=== PATIENT | female | born 1990 | race Two or more races ===

== ENCOUNTER 2023-11-08 06:24 | Inpatient (IN) | payer OTHER ==
[~2023-11-08] VITALS: Ht 154.9 cm; Wt 77.3 kg
[2023-11-08 08:12] LABS: COVID AG,FIA SOURCE NASAL SWAB
[2023-11-08 08:39] LABS: SARS-COV2 (COVID) ANTIGEN,FIA Negative (Negative)
[2023-11-08 10:29] LABS: APPEARANCE,URINE CLEAR (CLEAR); BILIRUBIN,URINE NEGATIVE (NEGATIVE); COLOR,URINE LIGHT YELLOW (YELLOW); GLUCOSE, URINE (UA) NEGATIVE (NEGATIVE); KETONES,URINE NEGATIVE (NEGATIVE); LEUKOCYTE ESTERASE ,URINE NEGATIVE (NEGATIVE); NITRATE,URINE NEGATIVE (NEGATIVE); OCCULT BLOOD,URINE NEGATIVE (NEGATIVE); PROTEIN,URINE NEGATIVE (NEGATIVE); SPECIFIC GRAVITIY, URINE 1.016 (1.003-1.030); UROBILINOGEN,URINE <=1.0 mg/dL (<=1.0)
[2023-11-08 10:35] LABS: HCG,QUAL URINE NEGATIVE (NEGATIVE)
[2023-11-08 10:36] LABS: ALCOHOL, URINE DRUG SCREEN NEGATIVE (NEGATIVE); BENZODIAZEPINES SCREEN,URINE POSITIVE (NEGATIVE); CANNABINOID SCREEN,URINE NEGATIVE (NEGATIVE); COCAINE SCREEN,URINE NEGATIVE (NEGATIVE); METHADONE SCREEN, URINE NEGATIVE (NEGATIVE); OPIATE SCREEN,URINE NEGATIVE (NEGATIVE); PHENCYCLIDINE SCREEN,URINE NEGATIVE (NEGATIVE)
[2023-11-08 10:42] LABS: BACTERIA,URINE None Seen /HPF (None Seen); RBC,URINE None Seen /HPF (0-2); SQUAMOUS EPITHELIAL CELL,UR Rare /LPF (None Seen); WBC,URINE None Seen /HPF (0-5)
[2023-11-08 10:46] LABS: AMPHET/METH SCREEN,URINE NEGATIVE (NEGATIVE); BARBITURATE SCREEN, URINE NEGATIVE (NEGATIVE)
[2023-11-08] MEDS ORDERED: IPRATROPIUM BROMIDE 0.5 MG/2.5 ML NEB SOLUTION NEB PRN (11:00)
[2023-11-08] MEDS ORDERED: ZOLPIDEM TARTRATE 5 MG TABLET PO PRN (11:00)
[2023-11-08] MEDS ORDERED: MAGNESIUM HYDROXIDE SUSPENSION 30 ML UDCUP PO PRN (11:00)
[2023-11-08] MEDS ORDERED: ONDANSETRON HCL 4 MG/2 ML VIAL IVP PRN (11:00)
[2023-11-08] MEDS ORDERED: BISACODYL 10 MG RECTAL RECTAL SUPPOSITORY PR PRN (11:00)
[2023-11-08] MEDS ORDERED: ALBUTEROL SULFATE 2.5 MG/0.5 ML NEB SOLUTION NEB PRN (11:00)
[2023-11-08] MEDS: HydrOXYzine HCL 25 MG TABLET PO ONE (13:10)
[2023-11-08 15:03] VITALS: BP 94/57; PULSE 65; RESP 19; TEMP 98.6; O2SAT 94
[2023-11-08] MEDS: HEPARIN SODIUM,PORCINE 5,000 UNITS/ML VIAL SQ SCH (16:20)
[2023-11-08] MEDS: DOCUSATE SODIUM 100 MG CAPSULE PO SCH (20:38)
[2023-11-08 20:40] VITALS: BP 103/63; PULSE 75; RESP 18; TEMP 98.2; O2SAT 97
[2023-11-08] MEDS: HydrOXYzine HCL 25 MG TABLET PO PRN (23:19)
[2023-11-09] MEDS: PANTOPRAZOLE SODIUM 40 MG/VIAL IVP SCH (08:58)
[2023-11-09 09:29] VITALS: BP 132/72; PULSE 72; RESP 18; TEMP 98.3; O2SAT 97
[2023-11-09] MEDS: DiphenhydrAMINE HCL 50 MG/ML VIAL IM ONE (13:05)
[2023-11-09] MEDS: HALOPERIDOL LACTATE 5 MG/ML VIAL IM ONE (13:06)
[2023-11-09] MEDS: LORazepam 2 MG/ML VIAL IM ONE (13:07)
[2023-11-09 19:55] VITALS: BP 100/59; PULSE 81; RESP 17; TEMP 97.8; O2SAT 97
[2023-11-10 09:58] VITALS: BP 113/71; PULSE 87; RESP 20; TEMP 98.4; O2SAT 99
[2023-11-10] MEDS ORDERED: LORazepam 2 MG/ML VIAL ONE (15:15)
[2023-11-10] MEDS ORDERED: HALOPERIDOL LACTATE 5 MG/ML VIAL ONE (15:15)
[2023-11-10] MEDS ORDERED: DiphenhydrAMINE HCL 50 MG/ML VIAL ONE (15:15)
[2023-11-10] MEDS: LORazepam 2 MG/ML VIAL IM ONE (15:22)
[2023-11-10] MEDS: DiphenhydrAMINE HCL 50 MG/ML VIAL IM ONE (15:23)
[2023-11-10] MEDS: HALOPERIDOL LACTATE 5 MG/ML VIAL IM ONE (15:23)
[2023-11-10 23:00] VITALS: BP 96/61; PULSE 94; RESP 18; TEMP 98.2; O2SAT 98
[2023-11-11 04:15] VITALS: BP 99/60; PULSE 72; RESP 20; TEMP 98.4; O2SAT 97
[2023-11-11] MEDS: PANTOPRAZOLE SODIUM 40 MG DR TABLET PO SCH (08:27)
[2023-11-11 08:35] VITALS: BP 99/60; PULSE 65; RESP 20; TEMP 97.7; O2SAT 98
[2023-11-11] MEDS: QUEtiapine FUMARATE 100 MG TABLET PO SCH (16:29)
[2023-11-11 22:48] VITALS: BP 109/63; PULSE 88; RESP 20; TEMP 98.6; O2SAT 95
[2023-11-12] MEDS: ACETAMINOPHEN 325 MG TABLET PO PRN (05:01)
[2023-11-12 05:32] VITALS: BP 116/73; PULSE 70; RESP 20; O2SAT 96
[2023-11-12 08:59] VITALS: BP 91/55; PULSE 70; RESP 20; TEMP 98.6; O2SAT 95
== END 2023-11-12 19:12 | DRG 885 ==
LOC: EMS 06:25 → EDH 10:46 → 6S 14:50
PROVIDERS: ADMIT Hospitalist; ATTEND Hospitalist
PROC: GZ56ZZZ Individual Psychotherapy, Supportive (ICD-10-PCS; principal; 2023-11-09)
DX: F25.9 Schizoaffective disorder, unspecified (principal); R45.851 Suicidal ideations; F17.200 Nicotine dependence, unspecified, uncomplicated; Z20.822 Contact with and (suspected) exposure to COVID-19; F41.9 Anxiety disorder, unspecified; I10 Essential (primary) hypertension; F43.12 Post-traumatic stress disorder, chronic
CPT/HCPCS: 80307; 81001; 84703; 99285; C9113; J1200; J1630; J1644; J2060